=== PATIENT | male | born 1945 | race Caucasian/White ===

== ENCOUNTER 2018-10-25 12:14 | Emergency (ER) | payer BC, MEDICARE ==
[2018-10-25 12:27] VITALS: BP 173/106
[2018-10-25] MEDS ORDERED: Acetaminophen 325 MG Tab PO ONE (12:52)
--- NOTE | 2018-10-25 13:15 | EDM.PDOC ---
ED HPI GENERAL MEDICAL PROBLEM - General Chief Complaint: Lower Extremity Injury/Pain Stated Complaint: L LEG INJURY/FALL Time Seen by Provider: 10/25/18 12:29 Source of Information: Reports: Patient, Family, RN Notes Reviewed - History of Present Illness INITIAL COMMENTS - FREE TEXT/NARRATIVE: 72-year-old male with severe left leg pain. He was sitting on a chair, leaning to do something and the chair tipped over on him last evening falling against a table. He did suffer abrasion injury to his right forearm, abrasion contusion injury to his face but also some type of injury to his left upper leg. There was moderate discomfort of his left upper leg right after the fall but he was able to walk to bed. When up for the bathroom during the night the pain of the left leg was more severe. After resting for 90 minutes or so with a heating pad on his leg pain became so severe he can barely walk. It is some pain at rest but markedly increased pain with motion of the leg or any attempt at weightbearing. Of note he is on eliquis with history of chronic atrial fib. He denies headache or severe facial discomfort. Eyes neck or back pain. No major arm discomfort. - Related Data Allergies Allergy/AdvReac Type Severity Reaction Status Date / Time Penicillins Allergy Rash Verified 10/25/18 12:27 Home Meds: Home Meds [place] Co Q10 100 mg PO DAILY 04/01/16 [History] Omeprazole Magnesium [Prilosec Otc] 20 mg PO DAILY 04/01/16 [History] Probiotic 5 Strain 1 tab PO DAILY 04/01/16 [History] Tamsulosin [Flomax] 0.4 mg PO DAILY 04/01/16 [History] amLODIPine [Norvasc] 5 mg PO DAILY 04/01/16 [History] hydroCHLOROthiazide [Hydrochlorothiazide] 12.5 mg PO DAILY 04/01/16 [History] Apixaban [Eliquis] 5 mg PO BID 10/25/18 [History] Cyanocobalamin (Vitamin B-12) [Vitamin B-12] 5,000 mcg SL DAILY 10/25/18 [ History] Doxycycline [Doxycycline Monohydrate] 100 mg PO BID 10/25/18 [History] Past Medical History HEENT History: Reports: Impaired Vision Cardiovascular History: Reports: Afib, Hypertension Respiratory History: Reports: Pneumonia, Recurrent, Other (See Below) Other Respiratory History: off antibiotic last saturday for pneumonnia; left lower lung scraping Gastrointestinal History: Reports: GERD Genitourinary History: Reports: None Other Genitourinary History: only has 1 kidney, born with 1 Musculoskeletal History: Reports: None Neurological History: Reports: None 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; 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 Psychiatric History: Reports: None Endocrine/Metabolic History: Reports: None Hematologic History: Reports: None Immunologic History: Reports: None Oncologic (Cancer) History: Reports: None Dermatologic History: Reports: None - Infectious Disease History Infectious Disease History: Reports: Influenza - Past Surgical History Head Surgeries/Procedures: Reports: None GI Surgical History: Reports: Appendectomy Male Surgical History: Reports: None Musculoskeletal Surgical History: Reports: None Social & Family History - Family History Cardiac: Reports: CAD Neurological: Reports: CVA - Tobacco Use Smoking Status *Q: Never Smoker - Caffeine Use Caffeine Use: Reports: Coffee Other Caffeine Use: 1 cup daily - Recreational Drug Use Recreational Drug Use: No - Living Situation & Occupation Living situation: Reports: , with Spouse Occupation: Employed Review of Systems - Review of Systems Review Of Systems: See Below Constitutional: Reports: No Symptoms Eyes: Reports: No Symptoms Ears: Reports: No Symptoms Nose: Reports: No Symptoms Mouth/Throat: Reports: No Symptoms Respiratory: Denies: Shortness of Breath Cardiovascular: Denies: Chest Pain GI/Abdominal: Denies: Abdominal Pain, Nausea, Vomiting Musculoskeletal: Reports: Other (Severe pain left lateral proximal thigh). Denies: Neck Pain, Back Pain Skin: Reports: Other (Abrasion injury right forearm) Neurological: Denies: Dizziness, Numbness, Tingling ED EXAM, GENERAL - Physical Exam Exam: See Below General Appearance: Alert, Mild Distress Eye Exam: Bilateral Eye: PERRL Ears: Normal External Exam Head: Other (He does have mild abrasion injury periorbital left face,). No: Facial Swelling ( no bony tenderness of the head or face) Neck: Supple, Non-Tender Respiratory/Chest: No Respiratory Distress, Lungs Clear, Normal Breath Sounds Cardiovascular: Tachycardia GI/Abdominal: Soft, Non-Tender Extremities: Other (Moderate tenderness of the left proximal lateral thigh, no visible bruising or swelling, severe pain with motion of the left leg, knee is nontender, lower leg foot and ankle all nontender) Neurological: Alert, Oriented, No Motor/Sensory Deficits Skin Exam: Warm, Dry, Normal Color Course - Vital Signs Last Recorded V/S: Last Vital Signs Temp 98.0 F 10/25/18 12:23 Pulse 117 H 10/25/18 12:23 Resp 18 10/25/18 12:23 BP 173/106 H 10/25/18 12:23 Pulse Ox 99 10/25/18 12:23 - Orders/Labs/Meds Orders: Active Orders 24 hr Category Date Time Status Femur Min 2V Lt [CR] Stat Exams 10/25/18 12:52 Taken Pelvis 1V or 2V [CR] Stat Exams 10/25/18 12:52 Taken Meds: Medications Discontinued Medications Generic Name Dose Route Start Last Admin Trade Name Archie PRN Reason Stop Dose Admin Acetaminophen 975 mg 10/25/18 12:52 10/25/18 13:22 Tylenol PO 10/25/18 12:53 975 mg NOW ONE Administration Hydrocodone Bitart/Acetaminophen 1 tab 10/25/18 13:56 10/25/18 14:03 [place] 325-5 Mg PO 10/25/18 13:57 1 tab ONETIME ONE Administration - Re-Assessments/Exams Free Text/Narrative Re-Assessment/Exam: 10/25/18 19:35 X-rays of the femur and pelvis did not show any fracture as expected. He has contusion injury to the thigh with possible intramuscular hemorrhage. Have treated with Clint wrap and he will need a walker for at least 1-2 weeks until this has time to heal. I'm concerned he will be too unsteady with crutches. Did give Tylenol for pain and then one half tablet hydrocodone prior to discharge which did help him quite a lot. Discharge instructions as documented Departure - Departure Time of Disposition: 14:05 Disposition: Home, Self-Care 01 Condition: Fair Clinical Impression: Difficulty walking Thigh contusion Qualifiers: Encounter type: initial encounter Laterality: left Qualified Code(s): S70.12XA - Contusion of left thigh, initial encounter Fall Qualifiers: Encounter type: initial encounter Qualified Code(s): W19.XXXA - Unspecified fall, initial encounter - Discharge Information Instructions: Contusion, [id number] Referrals: Federico Cavanaugh MD [Primary Care Provider] - Forms: ED Department Discharge, ED Return to Work/School Form Additional Instructions: Clint wrap, rest leg, ice packs and elevation as needed for swelling, Clint wrap left thigh until pain resolving, use walker as needed until pain resolving, Tylenol up to 3 times daily for mild to moderate discomfort or one half tablet hydrocodone with 500 mg Tylenol every 6-8 hours if needed for more severe pain. Off work until pain resolving, follow up with your regular medical provider in about 5-6 days for recheck, call clinic Saturday for appointment, return to ED as needed if symptoms worsening in any way - My Orders Last 24 Hours: My Active Orders 10/25/18 12:52 Femur Min 2V Lt [CR] Stat Pelvis 1V or 2V [CR] Stat - Assessment/Plan Last 24 Hours: My Active Orders 10/25/18 12:52 Femur Min 2V Lt [CR] Stat Pelvis 1V or 2V [CR] Stat
[2018-10-25] MEDS ORDERED: Acetaminophen/HYDROcodone 325-5 MG Tab PO ONE (13:56)
--- NOTE | 2018-10-26 19:35 | CR ---
Left femur: AP and lateral views of the left femur were obtained. Comparison: No prior femur study. Medial joint space narrowing is noted within the knee which is moderate in severity. Slightly prominent overgrowth of the superior acetabulum of the left hip is seen which is degenerative in etiology. Osteopenia is noted. Minimal vascular calcification is present. No acute fracture or other acute bony abnormality is appreciated. Impression: 1. Degenerative change as noted above. 2. No acute abnormality is appreciated on two-view left femur study. Diagnostic code #2
--- NOTE | 2018-10-26 19:35 | CR ---
Pelvis: AP view of the pelvis was obtained. Comparison: No prior pelvis exam. Joint spaces within both hips are maintained. Sacroiliac joints are within normal limits. Mild bony overgrowth is noted of both superior acetabulum which is degenerative in etiology. No acute fracture or other bony abnormality is seen. Impression: 1. Incidental finding as noted above. 2. Nothing acute is appreciated on AP pelvis exam. Diagnostic code #2
== END 2018-10-25 14:40 | disposition home or self-care (01) ==
LOC: JD.ED 12:14
DX: S70.12XA Contusion of left thigh, initial encounter (principal); I48.91 Unspecified atrial fibrillation; I10 Essential (primary) hypertension; K21.9 Gastro-esophageal reflux disease without esophagitis; Z79.01 Long term (current) use of anticoagulants; Z88.0 Allergy status to penicillin; Z79.899 Other long term (current) drug therapy; W07.XXXA Fall from chair, initial encounter
CPT/HCPCS: 72170; 73552; 99283; A9270

== ENCOUNTER 2019-10-16 10:55 | Emergency (ER) | payer MEDICARE, BC ==
--- NOTE | 2019-10-16 12:01 | EDM.PDOC ---
ED HPI GENERAL MEDICAL PROBLEM - General Chief Complaint: Neuro Symptoms/Deficits Stated Complaint: [facility] Time Seen by Provider: 10/16/19 10:55 - History of Present Illness INITIAL COMMENTS - FREE TEXT/NARRATIVE: 73-year-old male presents the emergency room brought in by EMS with a stroke alert. At approximately 1015 this morning the patient had an onset with significant flaccidity on the right side and speech difficulties. EMS was contacted and the patient was transferred here. The patient in route cleared regained his ability to speak regain his ability to use his right side. And he thinks he is back to normal. The patient arrived here at 1055 transfer time was 6-8 minutes. 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 The patient's adds that the patient often drinks quite heavily but has been trying to cut back and has not had a drink in a week. The patient has chronic atrial fibrillation and has been off his Eliquis now for 7 days he was stopped 3 days before a gastrointestinal procedure done in [place] where he had an EGD and an ERCP with a stent placement. According to the patient he is due to restart his Eliquis today or tomorrow. - Related Data Allergies Allergy/AdvReac Type Severity Reaction Status Date / Time Penicillins Allergy Rash Verified 10/16/19 11:34 Home Meds: Home Meds Albert Co Q10 100 mg PO DAILY 04/01/16 [History] Omeprazole Magnesium [Prilosec Otc] 20 mg PO DAILY 04/01/16 [History] Probiotic 5 Strain 1 tab PO DAILY 04/01/16 [History] Tamsulosin [Flomax] 0.4 mg PO DAILY 04/01/16 [History] amLODIPine [Norvasc] 5 mg PO DAILY 04/01/16 [History] hydroCHLOROthiazide [Hydrochlorothiazide] 12.5 mg PO DAILY 04/01/16 [History] Apixaban [Eliquis] 5 mg PO BID 10/25/18 [History] Cyanocobalamin (Vitamin B-12) [Vitamin B-12] 5,000 mcg SL DAILY 10/25/18 [ History] Past Medical History HEENT History: Reports: Impaired Vision Cardiovascular History: Reports: Afib, Hypertension Respiratory History: Reports: Pneumonia, Recurrent, Other (See Below) Other Respiratory History: off antibiotic last saturday for pneumonnia; left lower lung scraping Gastrointestinal History: Reports: GERD Genitourinary History: Reports: None Other Genitourinary History: only has 1 kidney, born with 1 Musculoskeletal History: Reports: None Neurological History: Reports: None 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; 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 Psychiatric History: Reports: None Endocrine/Metabolic History: Reports: None Hematologic History: Reports: None Immunologic History: Reports: None Oncologic (Cancer) History: Reports: None Dermatologic History: Reports: None - Infectious Disease History Infectious Disease History: Reports: Influenza - Past Surgical History Head Surgeries/Procedures: Reports: None GI Surgical History: Reports: Appendectomy Male Surgical History: Reports: None Musculoskeletal Surgical History: Reports: None Social & Family History - Family History Cardiac: Reports: CAD Neurological: Reports: CVA - Caffeine Use Caffeine Use: Reports: Coffee Other Caffeine Use: 1 cup daily - Living Situation & Occupation Living situation: Reports: , with Spouse Occupation: Employed ED ROS GENERAL - Review of Systems Review Of Systems: See Below Constitutional: Reports: No Symptoms HEENT: Reports: No Symptoms Respiratory: Reports: No Symptoms Cardiovascular: Reports: No Symptoms Endocrine: Reports: No Symptoms GI/Abdominal: Reports: No Symptoms : Reports: No Symptoms Musculoskeletal: Reports: Other (See history of present illness) Neurological: Reports: Other (See history of present illness) ED EXAM, NEURO - Physical Exam Exam: See Below Exam Limited By: No Limitations General Appearance: Alert, No Apparent Distress, Other (The patient states he is back to normal) Eye Exam: Bilateral Eye: EOMI, Normal Inspection, PERRL Ears: Normal External Exam, Normal Canal, Hearing Grossly Normal, Normal TMs Nose: Normal Inspection, Normal Mucosa, No Blood Throat/Mouth: Normal Inspection, Normal Lips, Normal Teeth, Normal Gums, Normal Oropharynx, Normal Voice, No Airway Compromise Head Exam: Atraumatic, Normocephalic Neck: Normal Inspection, Supple, Non-Tender, Full Range of Motion. 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 The patient can lift up both legs equally and hold them up against resistance equally dorsiflexion of the foot and extension is equal bilaterally. Stroke score of 1 he had difficulty identifying the ye the cactus in the hammock. He could read without difficulty and identify what was going on in the other scenarios without any problems.) Course - Vital Signs Last Recorded V/S: Last Vital Signs Temp 37.1 C 10/16/19 11:07 Pulse 84 10/16/19 11:07 Resp 13 10/16/19 11:07 BP 164/87 H 10/16/19 11:07 Pulse Ox 100 10/16/19 11:07 - Orders/Labs/Meds Orders: Active Orders 24 hr Category Date Time Status EKG 12 Lead [EKG Documentation Completion] [RC] ROUTINE Care 10/16/19 12:45 Active Head wo Cont [CT] Routine Exams 10/16/19 11:05 Taken Sodium Chloride 0.9% [Saline Flush] Med 10/16/19 12:15 Active 10 ml FLUSH ASDIRECTED Sodium Chloride 0.9% [Saline Flush] Med 10/16/19 13:30 Active 40 ml FLUSH ASDIRECTED Medication Orders Sodium Chloride (Saline Flush) 10 ml FLUSH ASDIRECTED MALDONADO Last Admin: 10/16/19 13:20 Dose: 10 ml Sodium Chloride (Saline Flush) 40 ml FLUSH ASDIRECTED MALDONADO Last Admin: 10/16/19 13:21 Dose: 40 ml Labs: Laboratory Tests 10/16/19 10/16/19 10/16/19 Range/Units 11:30 11:30 11:30 WBC 6.44 (4.23-9.07) K/mm3 RBC 4.85 (4.63-6.08) M/mm3 Hgb 15.4 (13.7-17.5) gm/dl Hct 46.3 (40.1-51.0) % MCV 95.5 H D (79.0-92.2) fl MCH 31.8 (25.7-32.2) pg MCHC 33.3 (32.2-35.5) g/dl RDW Std Deviation 45.0 H (35.1-43.9) fL Plt Count 283 (163-337) K/mm3 MPV 10.7 (9.4-12.3) fl Neut % (Auto) 69.2 H (34.0-67.9) % Lymph % (Auto) 16.1 L (21.8-53.1) % [place] % (Auto) 9.3 (5.3-12.2) % Eos % (Auto) 4.2 (0.8-7.0) Baso % (Auto) 0.9 (0.1-1.2) % Neut # (Auto) 4.45 (1.78-5.38) K/mm3 Lymph # (Auto) 1.04 L (1.32-3.57) K/mm3 [place] # (Auto) 0.60 (0.30-0.82) K/mm3 Eos # (Auto) 0.27 (0.04-0.54) K/mm3 Baso # (Auto) 0.06 (0.01-0.08) K/mm3 PT 11.3 (9.7-12.0) SECONDS INR 1.04 APTT 29 (22-31) SECONDS Sodium 143 (136-145) mEq/L Potassium 3.7 (3.5-5.1) mEq/L Chloride 105 (98-107) mEq/L Carbon Dioxide 28 (21-32) mEq/L Anion Gap 13.7 (5-15) BUN 15 (7-18) mg/dL Creatinine 1.2 (0.7-1.3) mg/dL Est Cr Clr Drug Dosing 61.07 mL/min Estimated GFR (MDRD) 60 (>60) mL/min BUN/Creatinine Ratio 12.5 L (14-18) Glucose 136 H (83-115) mg/dL POC Glucose (83-110) mg/dL Calcium 9.1 (8.5-10.1) mg/dL Total Bilirubin 0.8 (0.2-1.0) mg/dL AST 18 (15-37) U/L ALT 30 (16-63) U/L Alkaline Phosphatase 103 (46-116) U/L Troponin I < 0.017 (0.00-0.056) ng/mL Total Protein 7.4 (6.4-8.2) g/dl Albumin 3.4 (3.4-5.0) g/dl Globulin 4.0 gm/dL Albumin/Globulin Ratio 0.9 L (1-2) 05/29/20 Range/Units 11:32 WBC (4.23-9.07) K/mm3 RBC (4.63-6.08) M/mm3 Hgb (13.7-17.5) gm/dl Hct (40.1-51.0) % MCV (79.0-92.2) fl MCH (25.7-32.2) pg MCHC (32.2-35.5) g/dl RDW Std Deviation (35.1-43.9) fL Plt Count (163-337) K/mm3 MPV (9.4-12.3) fl Neut % (Auto) (34.0-67.9) % Lymph % (Auto) (21.8-53.1) % [place] % (Auto) (5.3-12.2) % Eos % (Auto) (0.8-7.0) Baso % (Auto) (0.1-1.2) % Neut # (Auto) (1.78-5.38) K/mm3 Lymph # (Auto) (1.32-3.57) K/mm3 [place] # (Auto) (0.30-0.82) K/mm3 Eos # (Auto) (0.04-0.54) K/mm3 Baso # (Auto) (0.01-0.08) K/mm3 PT (9.7-12.0) SECONDS INR APTT (22-31) SECONDS Sodium (136-145) mEq/L Potassium (3.5-5.1) mEq/L Chloride (98-107) mEq/L Carbon Dioxide (21-32) mEq/L Anion Gap (5-15) BUN (7-18) mg/dL Creatinine (0.7-1.3) mg/dL Est Cr Clr Drug Dosing mL/min Estimated GFR (MDRD) (>60) mL/min BUN/Creatinine Ratio (14-18) Glucose (83-115) mg/dL POC Glucose 140 H (83-110) mg/dL Calcium (8.5-10.1) mg/dL Total Bilirubin (0.2-1.0) mg/dL AST (15-37) U/L ALT (16-63) U/L Alkaline Phosphatase (46-116) U/L Troponin I (0.00-0.056) ng/mL Total Protein (6.4-8.2) g/dl Albumin (3.4-5.0) g/dl Globulin gm/dL Albumin/Globulin Ratio (1-2) Meds: Medications Generic Name Dose Route Start Last Admin Trade Name Freq PRN Reason Stop Dose Admin Sodium Chloride 10 ml 10/16/19 12:15 10/16/19 13:20 Saline Flush FLUSH 10 ml ASDIRECTED MALDONADO Administration Sodium Chloride 40 ml 10/16/19 13:30 10/16/19 13:21 Saline Flush FLUSH 40 ml ASDIRECTED MALDONADO Administration Discontinued Medications Generic Name Dose Route Start Last Admin Trade Name Freq PRN Reason Stop Dose Admin Aspirin 325 mg 10/16/19 13:54 10/16/19 14:08 Ecotrin PO 10/16/19 13:55 325 mg ONETIME ONE Administration Gadobenate Dimeglumine 20 ml 10/16/19 12:08 10/16/19 13:19 Multihance IVPUSH 10/16/19 12:09 20 ml ONETIME ONE Administration - Re-Assessments/Exams Free Text/Narrative Re-Assessment/Exam: 10/16/19 12:28 This case was discussed with Dr. Terrazas at [place] [facility] call at [address] got connected with Dr. Terrazas at 1154. Dr. Terrazas agreed with MRI/MRA. He does recommend awaiting the results of these before making a decision with restarting the Eliquis. I will discuss this again with Dr. Terrazas after I get the results of the MRI/ MRA 10/16/19 14:50 I did discuss the images with Dr. Terrazas. He did not feel that interventional radiology had anything to offer after reviewing the images his recommendation was start aspirin 325 daily and restarting the Eliquis in about a week. Mk did feel that watching him for a little while would be very appropriate. I did discuss this with Dr. Deal our hospitalist. She wished for me to discuss this with interventional radiology I did discuss it with Dr. Benson interventional radiologist environmental conservation officer who agreed that he does not have anything to offer the patient. I did relay this information to Dr. Deal who will come by and see the patient 10/16/19 15:22 Dr. Deal did come and examined the patient and felt strongly that she did not have anything to offer the patient and recommended going home on a daily aspirin 325 mg a day and following up with regular provider on Saturday or Saturday and then the discussion needs to happen about restarting the Eliquis it was Dr. Terrazas's recommendation to start it in 1 week. Approximately 1 hour ago I did discuss the patient's case with Bethany the patient's daughter and then again discussed the situation with her regarding the outpatient treatment. Departure - Departure Time of Disposition: 14:52 Disposition: Home, Self-Care 01 Clinical Impression: CVA (cerebral vascular accident), Transient ischemic attack (TIA), Expressive aphasia - Discharge Information Referrals: Federico Cavanaugh MD [Primary Care Provider] - Forms: ED Department Discharge Additional Instructions: Return to the emergency room with any questions problems or worsening symptoms. Take aspirin 325 mg daily until restarting the Eliquis. Follow-up with your regular physician on Saturday or Saturday for follow-up. Also discuss restarting the Eliquis. It was the neurologist recommendation to wait 1 week after today before restarting the Eliquis. Sepsis Event Note - Evaluation Sepsis Screening Result: No Definite Risk - Focused Exam Vital Signs: Vital Signs Temp Pulse Resp BP Pulse Ox 10/16/19 11:07 37.1 C 84 13 164/87 H 100 Date Exam was Performed: 10/16/19 Time Exam was Performed: 15:22 - My Orders Last 24 Hours: My Active Orders 10/16/19 11:05 Head wo Cont [CT] Routine 10/16/19 12:15 Sodium Chloride 0.9% [Saline Flush] 10 ml FLUSH ASDIRECTED 10/16/19 12:45 EKG 12 Lead [EKG Documentation Completion] [RC] ROUTINE 10/16/19 13:30 Sodium Chloride 0.9% [Saline Flush] 40 ml FLUSH ASDIRECTED - Assessment/Plan Last 24 Hours: My Active Orders 10/16/19 11:05 Head wo Cont [CT] Routine 10/16/19 12:15 Sodium Chloride 0.9% [Saline Flush] 10 ml FLUSH ASDIRECTED 10/16/19 12:45 EKG 12 Lead [EKG Documentation Completion] [RC] ROUTINE 10/16/19 13:30 Sodium Chloride 0.9% [Saline Flush] 40 ml FLUSH ASDIRECTED
[2019-10-16] MEDS ORDERED: Gadobenate Dimeglumine 529 MG/ML 20 ML SDV IVPUSH ONE (12:08)
[2019-10-16] MEDS ORDERED: Sodium Chloride 0.9% 10 ML Syringe FLUSH SCH ×2 (12:15→13:30)
--- NOTE | 2019-10-16 12:38 | MR ---
MRI angiogram of brain Technique: MR angiogram sequence was obtained centered of the [place]. Multiple MIP images were obtained in multiple projections. Findings: 2 patent distal vertebral arteries are seen. Basilar artery is patent. Both posterior cerebral arteries are patent. Distal internal carotid arteries are patent. Carotid siphon is patent. Right middle cerebral artery appears patent. Anterior cerebral arteries are patent. Diminished flow is noted into the left middle cerebral artery which may relate to the area of encephalomalacia within the left frontal lobe. Opercular branches are not seen of the middle cerebral artery. Impression: 1. Poor flow into the left middle cerebral artery with nonvisualized opercular branches of the middle cerebral artery and left side. This finding may relate to encephalomalacia within the left frontal region. MRI diffusion sequence could be obtained to make sure no abnormal areas of diffusion are present in this area. 2. Other portions of the MR angiogram study are unremarkable. Diagnostic code #3 This report was dictated in MDT
--- NOTE | 2019-10-16 13:12 | MR ---
MR angiogram of neck Technique: Postcontrast MR angiogram study was obtained of the neck vessels. Both common carotid arteries are widely patent. Carotid bulbs appear patent on both sides. Internal and proximal external carotid arteries are patent. Vertebral arteries are felt to be widely patent on the source images. There is patency into the basilar artery. Impression: 1. No abnormality is seen on MR angiogram of the neck. Diagnostic code #1 This report was dictated in MDT
--- NOTE | 2019-10-16 13:12 | MR ---
MRI brain (without and with intravenous contrast) Technique: T1 sagittal T2, T2 FLAIR, T1 and diffusion axial; T1 FLAIR coronal; postcontrast T1 axial and post contrast T1 FLAIR coronal images were also obtained. Comparison: Previous head CT study as well as MR angiogram performed on the same day. Findings: Very small diffusion abnormality is seen within the white matter within the left parietal region. No other definite diffusion abnormalities are seen. Mild increased signal seen within the deepa as well as scattered within the periventricular and subcortical white matter. Increased signal is noted within the left medial frontal lobe. Cystic areas of encephalomalacia is noted within the left frontal region. Ex vacuole enlargement of the lateral left ventricle is noted. No other abnormal signal is seen within the brain parenchyma other than several old left-sided basal ganglia lacunar infarcts. There are no areas of abnormal enhancement being seen. No midline shift is seen. Impression: 1. Minimal acute diffusion abnormality within the left parietal white matter compatible with small acute white matter infarct. 2. Numerous areas of increased signal within the deepa, periventricular and subcortical white matter which is I feel is compatible with small vessel ischemic demyelination change. 3. Encephalomalacia is again noted within the left frontal region. 4. No areas of abnormal enhancement are seen. Diagnostic code #3 This report was dictated in MDT
[2019-10-16] MEDS ORDERED: Aspirin 325 MG Tab.EC PO ONE (13:54)
[2019-10-16 15:54] VITALS: BP 130/78; PULSE 70
--- NOTE | 2019-10-16 20:34 | CT ---
Head CT Technique: Multiple axial sections through the brain were obtained. Intravenous contrast was not utilized. Comparison: Previous head CT study of 09/02/09. 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 Moderate areas of diminished density are noted within the periventricular white matter which is compatible with small vessel ischemic demyelination change. Several old lacunar infarcts are noted within the basal ganglia. No other abnormal parenchymal densities are seen. No evidence of intracranial hemorrhage. No midline shift or mass-effect is seen. Ex vacuole enlargement is noted within the frontal horn of the lateral ventricle. Ventricles along with basal cisterns and sulci over the convexities are mildly prominent. Bone window settings were reviewed. Previous left-sided craniotomy is again noted. Visualized mastoid sinuses show nothing acute. Visualized paranasal sinuses show nothing acute. Impression: 1. Encephalomalacia within the left frontal lobe in area of previous craniotomy. 2. Senescent change as described above. 3. Nothing acute is definitely appreciated on noncontrast head CT exam. Diagnostic code #3 This report was dictated in MDT MTDD
== END 2019-10-16 15:58 | disposition home or self-care (01) ==
LOC: JD.ED 10:55
DX: I63.9 Cerebral infarction, unspecified (principal); G45.9 Transient cerebral ischemic attack, unspecified; K21.9 Gastro-esophageal reflux disease without esophagitis; I10 Essential (primary) hypertension; I48.91 Unspecified atrial fibrillation; Z88.0 Allergy status to penicillin; Z79.899 Other long term (current) drug therapy
CPT/HCPCS: 36415; 70450; 70544; 70548; 70553; 80053; 82962; 84484; 85025; 85610; 85730; 93005; 99285; A9270; A9577

== ENCOUNTER 2019-10-17 11:13 | Emergency (ER) | payer MEDICARE, BC ==
[2019-10-17] MEDS ORDERED: Diltiazem 50 MG/10 ML SDV IVPUSH ONE ×3 (12:02→13:36)
--- NOTE | 2019-10-17 12:08 | EDM.PDOC ---
ED HPI GENERAL MEDICAL PROBLEM - General Chief Complaint: Neuro Symptoms/Deficits Stated Complaint: FOLLOW UP ON YESTERDAY Time Seen by Provider: 10/17/19 12:00 Source of Information: Reports: Patient, Family (daughter) History Limitations: Reports: No Limitations - History of Present Illness INITIAL COMMENTS - FREE TEXT/NARRATIVE: 73-year-old male presents to the ED for evaluation of waxing and waning neurological symptoms. Patient developed acute onset of expressive aphasia and right arm weakness yesterday morning approximately 1030. He was seen through the ED and had a CT of his brain. It reveals an old craniotomy in the left temporoparietal cortex from removal of a benign brain tumor about 14 years ago. He subsequently had an MRI of his neck and MR I angiogram of the brain as well. No abnormalities of depicted on the MRI angiogram of the neck. The MRI angiogram of the brain revealed poor flow in the left middle cerebral artery with nonvisualized opercular branches of the middle cerebral artery on the left side. This finding may relate to encephalomalacia within the left frontal parietal region. 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 He was sent to [place] last week Saturday where he had a stent placed in the common bile duct by history. He had multiple biopsies of the head of the pancreas and results are not yet yet known whether there was any malignancy. He noticed stones or sludge were identified within the common bile duct. Patient has a history of chronic atrial fibrillation with rate usually well controlled without rate control medications. He was on Eliquis 5 mg twice daily which was discontinued 2 days before the stent placement. He has not yet resumed use of this medication. After he presented yesterday neurological consultation with Dr. Ayon in [place] was carried out and it was felt that there was little they had to offer and terms of neurological management and that they recommended he does take a 325 mg aspirin daily for another week before starting back on the Eliquis. However the daughter reports that his symptoms are waxing and waning in terms that his speech can be better and understandable at times and otherwise incomprehensible the patient exhibits a significant expressive aphasia. Also reports that he developed right arm weakness this morning and was carrying a cup of coffee into the living room and it simply fell out of his hand or tipped over secondary to weakness in the arm and hand. She reports now his symptoms are somewhat better than they were at home 2 hours ago. Patient denies any headache nausea or vomiting. He denies any visual acuity changes. He denies any problems with his gait although his daughter indicates that he was walking a little bit ataxic and listing towards the right side. At the time of presentation he is atrial fibrillation was up as high as 128/min but stays primarily in the 1 teens. 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 Of note he has no problems swallowing or eating. Onset: Sudden Onset Date: 10/16/19 Onset Time: 10:30 Duration: Hour(s):, Waxing/Waning (Symptoms of never gone away completely since onset yesterday morning. Nearly his expressive aphasia waxes and wanes and increased weakness coming and going in his right upper extremity.) Location: Reports: Upper Extremity, Right, Other (Breasts of a aphasia) Quality: Reports: Other (Is in no pain) Severity: Moderate Improves with: Reports: None Worsens with: Reports: Other Context: Reports: Other (History of chronic atrial fibrillation.). Denies: Activity (Times are waxing and waning.), Exercise, Lifting, Sick Contact, Trauma Associated Symptoms: Reports: Weakness, Other (Right upper extremity breaths of a aphasia). Denies: Confusion, Chest Pain, Cough, cough w sputum, Diaphoresis, Fever/Chills, Headaches, Loss of Appetite, Malaise, Nausea/Vomiting, Rash, Seizure, Shortness of Breath, Syncope Treatments SSIS SSRS DEVELOPER: Reports: Other (see below) (Aspirin 325 mg once daily.) - Related Data Allergies Allergy/AdvReac Type Severity Reaction Status Date / Time Penicillins Allergy Rash Verified 10/17/19 11:34 Home Meds: Home Meds Albert Co Q10 100 mg PO DAILY 04/01/16 [History] Omeprazole Magnesium [Prilosec Otc] 20 mg PO DAILY 04/01/16 [History] Probiotic 5 Strain 1 tab PO DAILY 04/01/16 [History] Tamsulosin [Flomax] 0.4 mg PO DAILY 04/01/16 [History] amLODIPine [Norvasc] 5 mg PO DAILY 04/01/16 [History] hydroCHLOROthiazide [Hydrochlorothiazide] 12.5 mg PO DAILY 04/01/16 [History] Apixaban [Eliquis] 5 mg PO BID 10/25/18 [History] Cyanocobalamin (Vitamin B-12) [Vitamin B-12] 5,000 mcg SL DAILY 10/25/18 [ History] Aspirin 325 mg PO DAILY 10/17/19 [History] Past Medical History HEENT History: Reports: Impaired Vision Cardiovascular History: Reports: Afib, Hypertension Respiratory History: Reports: Pneumonia, Recurrent Other Respiratory History: off antibiotic last saturday for pneumonnia; left lower lung scraping Gastrointestinal History: Reports: GERD Genitourinary History: Reports: None Other Genitourinary History: only has 1 kidney, born with 1 Musculoskeletal History: Reports: None Neurological History: Reports: None, CVA, TIA 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; no cancer Psychiatric History: Reports: None Endocrine/Metabolic History: Reports: None Hematologic History: Reports: None Immunologic History: Reports: None Oncologic (Cancer) History: Reports: None Dermatologic History: Reports: None - Infectious Disease History Infectious Disease History: Reports: Influenza - Past Surgical History Head Surgeries/Procedures: Reports: None GI Surgical History: Reports: Appendectomy Male Surgical History: Reports: None Musculoskeletal Surgical History: Reports: None Social & Family History - Family History Cardiac: Reports: CAD Neurological: Reports: CVA - Tobacco Use Smoking Status *Q: Former Smoker Used Tobacco, but Quit: Yes Month/Year Tobacco Last Used: 50 years ago - Caffeine Use Caffeine Use: Reports: None Other Caffeine Use: 1 cup daily - Recreational Drug Use Recreational Drug Use: No - Living Situation & Occupation Living situation: Reports: , with Spouse Occupation: Employed [employer] [facility] - Review of Systems Review Of Systems: See Below Constitutional: Reports: Malaise, Fatigue. Denies: Fever, Chills, Decreased Appetite, Weight Loss HEENT: Reports: No Symptoms Respiratory: Reports: Shortness of Breath. Denies: Wheezing, Pleuritic Chest Pain (On exertion at times), Cough, Sputum, Hemoptysis, Other Cardiovascular: Reports: Blood Pressure Problem, Dyspnea on Exertion, Palpitations (Rarely aware of any palpitations). Denies: Claudication, Edema, Lightheadedness, Orthopnea Endocrine: Reports: Fatigue GI/Abdominal: Reports: Abdominal Pain (Was having terrible abdominal pain until the stent was placed last Saturday in the common bile duct. Fact he was experiencing pancreatitis.), Decreased Appetite, Nausea. Denies: Constipation, Diarrhea, Difficulty Swallowing, Distension, Flatus, Hematemesis, Hematochezia, Melena, Mucous in Stool : Reports: Frequency, Other (. Usually between 2 and 4 times nightly.) Musculoskeletal: Reports: Back Pain, Other Skin: Reports: Bruising (A week. Bruises easily when he is on Eliquis. He has been off for or) Neurological: Reports: Trouble Speaking (Rest of a aphasia again symptoms seem to wax and wane but have never improved since yesterday's onset of stroke symptoms), Weakness (Upper extremity), Change in Speech. Denies: Confusion, Dizziness, Headache, Numbness, Seizure, Syncope, Tingling, Difficulty Walking, Gait Disturbance, Other Psychiatric: Reports: No Symptoms Hematologic/Lymphatic: Reports: No Symptoms Immunologic: Reports: No Symptoms ED EXAM, NEURO - Physical Exam Exam: See Below Exam Limited By: Other General Appearance: Alert (Suppressive aphasia makes it somewhat difficult to understand him at times.), WD/WN, Anxious, Mild Distress, Other (Temperature is 36.2 with a heart rate up to 128/min atrial fibrillation on the monitor respiratory of 17 sats 100% room air BP 156/88.) Eye Exam: Bilateral Eye: Normal Inspection, PERRL (No gaze palsy.) Throat/Mouth: Normal Inspection, Normal Lips, Normal Oropharynx, Other (Uvula does pull to the wards the right side.) Head Exam: Atraumatic, Normocephalic, Other (No outward signs of any head or facial trauma.) Neck: Normal Inspection, Supple, Non-Tender, Full Range of Motion. No: Carotid Bruit, Lymphadenopathy (L), Lymphadenopathy (R), Thyromegaly Respiratory/Chest: No Respiratory Distress, No Accessory Muscle Use, Rales ( Crackles both lung bases slightly worse on the left side as compared to the right.) Cardiovascular: Normal Peripheral Pulses, No Edema (Heart rate is irregular regular due to atrial fibrillation.), No Gallop, No Murmur, No Rub, Irregularly Irregular GI/Abdominal: Normal Bowel Sounds, Soft, Non-Tender, No Organomegaly, No Distention, No Mass, Pelvis Stable Neurological: Alert, Normal Mood/Affect, Normal Dorsiflexion, CN II-XII Intact, Oriented x 3, Babinski (Negative), Other (Very mild right-sided facial weakness. No appreciable weakness in the right arm or right leg. Gait is completely normal and he is able to pivot and turn without any ataxia. Romberg negative. There was no pronator drift. Rapid alternating movements were normal.). No: Abnormal Gait, Ataxia, Abnormal Finger to Nose, Abnormal Sensation, Straight Leg Raise (L), Straight Leg Raise (R), Difficulty Walking DTR: 0: Achilles (R), Achilles (L), 1+: Patella (L), 2+: Bicep (R), Bicep (L), Patella (R) Back Exam: Normal Inspection, Full Range of Motion. No: CVA Tenderness (L), CVA Tenderness (R) Extremities: Normal Inspection, Normal Range of Motion, Non-Tender, No Pedal Edema Psychiatric: Normal Affect, Anxious Skin Exam: Warm, Dry, Intact, Normal Color, No Rash EKG INTERPRETATION EKG Date: 10/17/19 Time: 12:07 Rhythm: A-Fib (Rate of 85 to 150/min) Rate (Beats/Min): 114 [place]: Normal P-Wave: Absent QRS: Other (There is Q waves in lead V1 V2 compared with a normal old anteroseptal myocardial infarction. There is early R wave transition V3 V4 consider septal hypertrophy pattern.) ST-T: Other (Paced voltage in the limb leads.) QT: Prolonged (QTC is mildly prolonged.) EKG Interpretation Comments: Abnormal ECG Course - Vital Signs Last Recorded V/S: Last Vital Signs Temp 36.2 C 10/17/19 11:29 Pulse 107 H 10/17/19 11:29 Resp 17 10/17/19 11:29 BP 156/88 H 10/17/19 11:29 Pulse Ox 100 10/17/19 11:29 - Orders/Labs/Meds Orders: Active Orders 24 hr Category Date Time Status EKG Documentation Completion [RC] STAT Care 10/17/19 12:02 Active Chest 1V Frontal [CR] Stat Exams 10/17/19 12:01 Taken Head wo Cont [CT] Stat Exams 10/17/19 12:03 Taken Diltiazem [Cardizem] 100 mg Med 10/17/19 12:15 Active Sodium Chloride 0.9% [Normal Saline] 100 ml IV TITRATE Sodium Chloride 0.9% [Normal Saline] 1,000 ml Med 10/17/19 12:15 Active IV ASDIRECTED Medication Orders Diltiazem HCl 100 mg/ Sodium (Chloride) 100 mls @ 5 mls/hr IV TITRATE MALDONADO; Protocol Last Titration: 10/17/19 13:05 Dose: 15 mg/hr, 15 mls/hr Titration: 10/17/19 12:51 Dose: 10 mg/hr, 10 mls/hr Admin: 10/17/19 12:27 Dose: 5 mg/hr, 5 mls/hr Sodium Chloride (Normal Saline) 1,000 mls @ 100 mls/hr IV ASDIRECTED MALDONADO Last Admin: 10/17/19 12:27 Dose: 100 mls/hr Labs: Laboratory Tests 10/17/19 10/17/19 10/17/19 Range/Units 11:30 11:30 11:30 WBC 8.56 (4.23-9.07) K/mm3 RBC 5.02 (4.63-6.08) M/mm3 Hgb 16.0 (13.7-17.5) gm/dl Hct 47.4 (40.1-51.0) % MCV 94.4 H (79.0-92.2) fl MCH 31.9 (25.7-32.2) pg MCHC 33.8 (32.2-35.5) g/dl RDW Std Deviation 45.0 H (35.1-43.9) fL Plt Count 320 (163-337) K/mm3 MPV 11.0 (9.4-12.3) fl Neut % (Auto) 73.9 H (34.0-67.9) % Lymph % (Auto) 14.0 L (21.8-53.1) % [place] % (Auto) 9.0 (5.3-12.2) % Eos % (Auto) 1.8 (0.8-7.0) Baso % (Auto) 1.1 (0.1-1.2) % Neut # (Auto) 6.33 H (1.78-5.38) K/mm3 Lymph # (Auto) 1.20 L (1.32-3.57) K/mm3 [place] # (Auto) 0.77 (0.30-0.82) K/mm3 Eos # (Auto) 0.15 (0.04-0.54) K/mm3 Baso # (Auto) 0.09 H (0.01-0.08) K/mm3 ESR (0-15) mm/hr PT 11.1 (9.7-12.0) SECONDS INR 1.02 APTT 30 (22-31) SECONDS D-Dimer, Quantitative 0.66 H (0.19-0.50) mg/L Sodium 143 (136-145) mEq/L Potassium 3.8 (3.5-5.1) mEq/L Chloride 106 (98-107) mEq/L Carbon Dioxide 25 (21-32) mEq/L Anion Gap 15.8 H (5-15) BUN 15 (7-18) mg/dL Creatinine 1.1 (0.7-1.3) mg/dL Est Cr Clr Drug Dosing 64.65 mL/min Estimated GFR (MDRD) > 60 (>60) mL/min BUN/Creatinine Ratio 13.6 L (14-18) Glucose 113 (83-115) mg/dL Calcium 9.4 (8.5-10.1) mg/dL Magnesium 1.9 (1.8-2.4) mg/dl Total Bilirubin 0.7 (0.2-1.0) mg/dL GGT 59 (15-85) U/L AST 20 (15-37) U/L ALT 28 (16-63) U/L Alkaline Phosphatase 106 (46-116) U/L Troponin I < 0.017 (0.00-0.056) ng/mL C-Reactive Protein 2.2 H* (<1.0) mg/dL NT-Pro-B Natriuret Pep (0-125) pg/mL Total Protein 7.8 (6.4-8.2) g/dl Albumin 3.5 (3.4-5.0) g/dl Globulin 4.3 gm/dL Albumin/Globulin Ratio 0.8 L (1-2) Lipase 157 (73-393) U/L 30/20 05/30/20 Range/Units 11:30 11:30 WBC (4.23-9.07) K/mm3 RBC (4.63-6.08) M/mm3 Hgb (13.7-17.5) gm/dl Hct (40.1-51.0) % MCV (79.0-92.2) fl MCH (25.7-32.2) pg MCHC (32.2-35.5) g/dl RDW Std Deviation (35.1-43.9) fL Plt Count (163-337) K/mm3 MPV (9.4-12.3) fl Neut % (Auto) (34.0-67.9) % Lymph % (Auto) (21.8-53.1) % [place] % (Auto) (5.3-12.2) % Eos % (Auto) (0.8-7.0) Baso % (Auto) (0.1-1.2) % Neut # (Auto) (1.78-5.38) K/mm3 Lymph # (Auto) (1.32-3.57) K/mm3 [place] # (Auto) (0.30-0.82) K/mm3 Eos # (Auto) (0.04-0.54) K/mm3 Baso # (Auto) (0.01-0.08) K/mm3 ESR 36 H (0-15) mm/hr PT (9.7-12.0) SECONDS INR APTT (22-31) SECONDS D-Dimer, Quantitative (0.19-0.50) mg/L Sodium (136-145) mEq/L Potassium (3.5-5.1) mEq/L Chloride (98-107) mEq/L Carbon Dioxide (21-32) mEq/L Anion Gap (5-15) BUN (7-18) mg/dL Creatinine (0.7-1.3) mg/dL Est Cr Clr Drug Dosing mL/min Estimated GFR (MDRD) (>60) mL/min BUN/Creatinine Ratio (14-18) Glucose (83-115) mg/dL Calcium (8.5-10.1) mg/dL Magnesium (1.8-2.4) mg/dl Total Bilirubin (0.2-1.0) mg/dL GGT (15-85) U/L AST (15-37) U/L ALT (16-63) U/L Alkaline Phosphatase (46-116) U/L Troponin I (0.00-0.056) ng/mL C-Reactive Protein (<1.0) mg/dL NT-Pro-B Natriuret Pep 954 H (0-125) pg/mL Total Protein (6.4-8.2) g/dl Albumin (3.4-5.0) g/dl Globulin gm/dL Albumin/Globulin Ratio (1-2) Lipase (73-393) U/L Meds: Medications Generic Name Dose Route Start Last Admin Trade Name Freq PRN Reason Stop Dose Admin Diltiazem HCl 100 mg/ Sodium 100 mls @ 5 mls/hr 10/17/19 12:15 10/17/19 13:05 Chloride IV 15 mg/hr TITRATE MALDONADO 15 mls/hr Titration Protocol 5 MG/HR Sodium Chloride 1,000 mls @ 100 mls/hr 10/17/19 12:15 10/17/19 12:27 Normal Saline IV 100 mls/hr ASDIRECTED MALDONADO Administration Discontinued Medications Generic Name Dose Route Start Last Admin Trade Name Freq PRN Reason Stop Dose Admin Diltiazem HCl 10 mg 10/17/19 12:02 10/17/19 12:27 Cardizem IVPUSH 10/17/19 12:03 10 mg ONETIME ONE Administration Diltiazem HCl 10 mg 10/17/19 13:19 10/17/19 13:21 Cardizem IVPUSH 10/17/19 13:20 10 mg ONETIME ONE Administration Diltiazem HCl 15 mg 10/17/19 13:36 10/17/19 14:01 Cardizem IVPUSH 10/17/19 13:37 15 mg ONETIME ONE Administration - Radiology Interpretation Free Text/Narrative:: 73-year-old male presents to the ED for review of strokelike symptoms that wax and wane over the last 30 hours or more. He had sudden onset of strokelike symptoms with development of expressive aphasia and could not speak at all initially yesterday morning at about 1030 hrs. while at home. He was making funny noises according to his and had a dazed look in his eyes. He could not speak initially. She also recognized that he had weakness in his right upper extremity and perhaps in his right lower extremity as he was walking abnormally like a shuffling gait. He was brought to the ED and worked up thoroughly with MRI MRA of the brain and neck. 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 For there is a large area of encephalomalacia on the MRI. No definitive stroke could be identified at that time. However there was suspect occlusion of some of the branches of the middle cerebral artery mentioned by the radiologist. Of note the patient is in chronic atrial fibrillation and is on Eliquis 5 mg twice daily up until a week ago when it was discontinued. It was discontinued for for placement of a stent in his common bile duct done in [facility] in [place] last Saturday, October 12. He presents today in atrial fibrillation with poor rate control a rapid ventricular response up to 150/min. His daughter reports that his neurological symptoms are waxing and waning at times he cannot be understood at all and other times his speech is somewhat discernible. He also exhibited right upper extremity weakness this morning when he lost control of a cup of coffee and it tipped over due to weakness in his hand. On monitor on my assessment his gait was completely normal and his motor power and strength were pretty well equal in both upper extremities. He does have an expressive aphasia and slight right-sided facial weakness. Suspect that he likely has developed thrombus in his heart and is throwing small emboli out of his heart causing intermittent stroke symptoms. Is also possible that his heart rate is high enough that it is aggravating stroke symptoms from yesterday. Kiran he will be started on Cardizem 10 mg IV bolus and then 5 mg/h for rate control. Apparently consultation with neurology services yesterday suggested not to start him back on Eliquis for about a week. He is to take aspirin 325 mg once daily which he took this morning and yesterday. Inferior here a few crackles in the bases of his lungs. He will therefore have chest x-ray routine labs including BNP and magnesium levels. Tentatively he will be sent to [facility] in [place] where he can have a echocardiogram on an emergent basis that could be interpreted. Then decision made about best treatment options for him to prevent recurrent emboli from the heart if they are for suspect found. As I cannot account for why his neuro symptoms are waxing and waning. CT head will be repeated to see if it has changed since yesterday. - Re-Assessments/Exams Free Text/Narrative Re-Assessment/Exam: 10/17/19 12:36 atrial fibrillation is down to 112/min. He is 130/83. O2 sats 95% on room air. 10/17/19 12:41 chest x-ray reveals mildly hyperinflated lung brown. Mild cardiomegaly. Left hemidiaphragm is elevated but is elevated chronically. Diffuse mild vascular congestion pattern. No pneumothorax or definitive pulmonary infiltrate.Hemoglobin is 8.56 with 74% neutrophils on the auto differential. Hemoglobin is 16.0 with hematocrit of 47.4 suggesting mild hemoconcentration. Platelet count 320,000. 10/17/19 13:22 his diltiazem drip has been titrated up to 15 mg/h. Rate remains poorly controlled still in the 1 teens to 125. We will give diltiazem 10 mg IV bolus. Pressure is 141/77. T head has been completed. Previous surgery in the left frontal frontal parietal region appreciated. There is an area of encephalomalacia in this area. There is diffuse age-related atrophy and chronic small vessel deep white matter ischemia. There are old lacunar infarcts in the region of the left basal ganglia. No hemorrhagic changes no large tertiary acute CVA evident. 10/17/19 13:24 Labs show a PT of 11.1. INR was 1.02. PTT is 30. D-dimer is elevated at 0.66 which is probably normal for age. Sodium is 143 with a potassium of 3.8. Chloride 106 with a bicarb of 25. Anion gap is 15.8. BUN is 15 with a creatinine of 1.1. GFR is greater than 60. Glucose is 113 with a calcium of 9.4. Magnesium 1.9. Liver function normal. This includes a GGT of 59. Component is less than 0.017. C-reactive protein is 2.2. BNP is 954. Total protein 7.8 with an albumin fraction of 3.5. Lipase is 157 10/17/19 13:40: I did discuss the findings with the daughter and the patient. He is not real happy to go to [place] but there is not much twice at this point time. He needs an echocardiogram to see if there is intramural thrombi that are causing recurrent stroke symptoms since he is off his Eliquis. His rapid atrial fibrillation has been difficult to control. Current heart rate was 125 and I had reordered the third dose of Cardizem 15 mg IV bolus. He has had 2 previous 10 mg IV boluses. He is currently on 15 mg/h drip. Pressures controlled 155/90. I was then able to speak through the 1 call system at [facility] and spoke with on-call hospitalist Dr Mustafa and he is excepted care of this patient. The plan will be to send him to [facility] in [place] per ground ambulance. He will require neurology consult and cardiology consultation with a view to whether or not emergent anticoagulation is required to prevent further waxing and waning of stroke symptoms. He primarily has a an expressive aphasia which improves at times and then manges to a a aphasia that is difficult to understand at all. 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 CVA (cerebral vascular accident) Qualifiers: CVA mechanism: unspecified Qualified Code(s): I63.9 - Cerebral infarction, unspecified Congestive heart failure Qualifiers: Heart failure type: unspecified Heart failure chronicity: acute Qualified Code( s): I50.9 - Heart failure, unspecified - Discharge Information *PRESCRIPTION DRUG MONITORING PROGRAM REVIEWED*: Not Applicable *COPY OF PRESCRIPTION DRUG MONITORING REPORT IN PATIENT INGRID: Not Applicable Referrals: Fedeirco Cavanaugh MD [Primary Care Provider] - Forms: ED Department Discharge Additional Instructions: Patient transferred to [facility] due to waxing and waning of neurological symptoms since onset of neurological deficit yesterday morning at 1030 hrs. He has changes in speech primarily that of expressive a aphasia to the point that sometimes he is not discernible at other times is understandable. He also experiences intermittent right arm weakness. Dropped a cup of coffee as he could not hang onto it this morning. On my examination his symptoms apparently had improved dramatically and I could find very little neurological deficit other than obvious expressive aphasia. Particularly there is no abnormalities of weakness in the lower extremities or with his gait. There was no ataxia . No problems with his gait. Rapid alternating movements and [id number] and [id number] testing was normal. Negative Romberg sign. Pronator drift. Patient is in chronic atrial fibrillation and recently had Eliquis discontinued for placement of a common bile duct stent last week Saturday in [place]. He has been off the Eliquis since last Saturday or 1 week ago. I suspect his neuro symptoms a waxing and waning of symptoms may be secondary to cardiac emboli due to rapid atrial fibrillation. He was not on any medication for rate control when he came into our ED. He is required recurrent doses of Cardizem to keep his heart rate about 100. He requires a echocardiogram to ascertain if there is mural thrombus. Decision will have to be made at that time as to whether to re-anticoagulated with Eliquis etc. He therefore requires cardiology consultation and neurology consultation. Through to their facility by ground ambulance. Sepsis Event Note - Evaluation Sepsis Screening Result: No Definite Risk - Focused Exam Vital Signs: Vital Signs Temp Pulse Resp BP Pulse Ox 10/17/19 11:29 36.2 C 107 H 17 156/88 H 100 Date Exam was Performed: 10/17/19 Time Exam was Performed: 14:04 - My Orders Last 24 Hours: My Active Orders 10/17/19 12:01 Chest 1V Frontal [CR] Stat 10/17/19 12:02 EKG Documentation Completion [RC] STAT 10/17/19 12:03 Head wo Cont [CT] Stat 10/17/19 12:15 Diltiazem [Cardizem] 100 mg Sodium Chloride 0.9% [Normal Saline] 100 ml IV TITRATE Sodium Chloride 0.9% [Normal Saline] 1,000 ml IV ASDIRECTED - Assessment/Plan Last 24 Hours: My Active Orders 10/17/19 12:01 Chest 1V Frontal [CR] Stat 10/17/19 12:02 EKG Documentation Completion [RC] STAT 10/17/19 12:03 Head wo Cont [CT] Stat 10/17/19 12:15 Diltiazem [Cardizem] 100 mg Sodium Chloride 0.9% [Normal Saline] 100 ml IV TITRATE Sodium Chloride 0.9% [Normal Saline] 1,000 ml IV ASDIRECTED
[2019-10-17] MEDS ORDERED: Diltiazem 100 MG in Sodium Chloride 0.9% 100 ML IV SCH (12:15)
[2019-10-17] MEDS ORDERED: Sodium Chloride 0.9% 1,000 ML IV SCH (12:15)
[2019-10-17 14:33] VITALS: BP 160/95; PULSE 105
--- NOTE | 2019-10-19 06:27 | CR ---
Chest: Portable view of the chest was obtained. Comparison: Prior chest x-ray of 04/01/16. Blunting of the lateral left costophrenic angle is seen which is believed to be chronic. Slight areas of atelectasis or scarring within the left base is noted. Lungs otherwise are clear. Heart size at the upper limits of normal. Bony structures are grossly intact. Impression: 1. 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 2. Mild areas of atelectasis or scarring within the left base. 3. Nothing acute is otherwise appreciated. Diagnostic code #2 This report was dictated in MDT
--- NOTE | 2019-10-19 06:38 | CT ---
Head CT Technique: Multiple axial sections through the brain were obtained. Intravenous contrast was not utilized. Comparison: Prior MRI brain of 10/16/[address] exam also performed on 10/16/19. 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 Diminished density scattered within the periventricular and subcortical white matter compatible with small vessel ischemic demyelination change. No other abnormal parenchymal densities are seen. No evidence of intracranial hemorrhage. No midline shift or mass-effect is seen. Bone window settings were reviewed which show previous left-sided craniotomy. No acute calvarial finding is seen. Visualized paranasal sinuses and mastoid sinuses are clear. Impression: 1. Findings as noted above. 2. Nothing acute is definitely appreciated on noncontrast head CT study. Diagnostic code #3 This report was dictated in MDT I agree with preliminary report from [place], finalized on 10/17/19, 1:58 PM Central Daylight Time
== END 2019-10-17 14:16 ==
LOC: JD.ED 11:13
DX: I63.9 Cerebral infarction, unspecified (principal); I11.0 Hypertensive heart disease with heart failure; I50.9 Heart failure, unspecified; I48.20 Chronic atrial fibrillation, unspecified; K83.1 Obstruction of bile duct; K21.9 Gastro-esophageal reflux disease without esophagitis; Z87.891 Personal history of nicotine dependence; Z88.0 Allergy status to penicillin; Z79.82 Long term (current) use of aspirin; Z79.899 Other long term (current) drug therapy
CPT/HCPCS: 36415; 70450; 71045; 80053; 82977; 83690; 83735; 83880; 84484; 85025; 85379; 85610; 85652; 85730; 86140; 93005; 96365; 96366; 99285; J3490; J7030; J7050

== ENCOUNTER 2021-08-28 15:58 | Emergency (ER) | payer MEDICARE, BC ==
[2021-08-28 16:09] VITALS: BP 158/90; PULSE 100
== END 2021-08-28 17:02 | disposition home or self-care (01) ==
LOC: JD.ED 15:58
DX: S51.811A Laceration without foreign body of right forearm, initial encounter (principal); I48.91 Unspecified atrial fibrillation; I10 Essential (primary) hypertension; K21.9 Gastro-esophageal reflux disease without esophagitis; Z88.0 Allergy status to penicillin; Z79.899 Other long term (current) drug therapy; Z86.73 Personal history of transient ischemic attack (TIA), and cerebral infarction without residual deficits; Z79.01 Long term (current) use of anticoagulants; Z79.82 Long term (current) use of aspirin; W18.09XA Striking against other object with subsequent fall, initial encounter
CPT/HCPCS: 99283

== ENCOUNTER 2022-01-24 08:06 | Day surgery (SDC) | payer MEDICARE, BC ==
[~2022-01-24 08:06] MED LIST: Lactated Ringers 1,000 ML IV SCH; Lidocaine 1%/Sod Bicarbonate in NS 8.4% 1 ML Syringe IDERM PRN; Sodium Chloride 0.9% 10 ML Syringe FLUSH PRN; Sodium Chloride 0.9% 10 ML Syringe FLUSH SCH
[2022-01-24] MEDS ORDERED: Propofol 200 MG/20 ML SDV ONE ×3 (08:12→12:15)
[2022-01-24] MEDS ORDERED: fentaNYL 100 MCG/2 ML SDV ONE (08:12)
[2022-01-24] MEDS ORDERED: Lidocaine 1% 4 ML ONE (08:13)
[2022-01-24] MEDS ORDERED: Lidocaine 1% with EPINEPHrine 1:100,000 20 ML MDV ONE (08:44)
[2022-01-24] MEDS ORDERED: fentaNYL 100 MCG/2 ML SDV IVPUSH PRN (08:49)
[2022-01-24] MEDS ORDERED: Ondansetron 4 MG/2 ML SDV IVPUSH PRN (08:49)
[2022-01-24] MEDS ORDERED: Midazolam 1 MG/ML 2 ML SDV ONE (11:02)
[2022-01-24 15:25] VITALS: BP 130/80; PULSE 85
== END 2022-01-24 13:52 | disposition home or self-care (01) ==
LOC: JD.SDS 08:06
PROVIDERS: ATTEND Surgery
DX: D12.4 Benign neoplasm of descending colon (principal); D12.3 Benign neoplasm of transverse colon; K57.30 Diverticulosis of large intestine without perforation or abscess without bleeding; K22.70 Barrett's esophagus without dysplasia; K44.9 Diaphragmatic hernia without obstruction or gangrene; K29.90 Gastroduodenitis, unspecified, without bleeding; L82.0 Inflamed seborrheic keratosis; L73.8 Other specified follicular disorders; I10 Essential (primary) hypertension; Z86.73 Personal history of transient ischemic attack (TIA), and cerebral infarction without residual deficits; Z98.890 Other specified postprocedural states; Z79.899 Other long term (current) drug therapy; Z88.0 Allergy status to penicillin; Z87.891 Personal history of nicotine dependence
CPT/HCPCS: 00813; J2250; J2704; J3010; J7120

== ENCOUNTER 2022-04-18 07:27 | Day surgery (SDC) | payer MEDICARE, BC ==
[~2022-04-18 07:27] MED LIST changes: -Sodium Chloride 0.9% 10 ML Syringe FLUSH SCH
[2022-04-18] MEDS ORDERED: fentaNYL 100 MCG/2 ML SDV ONE (08:32)
[2022-04-18] MEDS ORDERED: Lidocaine 1% 6 ML ONE (08:32)
[2022-04-18] MEDS ORDERED: Propofol 200 MG/20 ML SDV ONE (08:32)
[2022-04-18] MEDS ORDERED: Sodium Chloride 0.9% 10 ML Syringe FLUSH SCH (09:00)
[2022-04-18 11:51] VITALS: BP 140/76; PULSE 74
== END 2022-04-18 10:30 | disposition home or self-care (01) ==
LOC: JD.SDS 07:27
PROVIDERS: ATTEND Surgery
DX: K57.30 Diverticulosis of large intestine without perforation or abscess without bleeding (principal); K64.4 Residual hemorrhoidal skin tags; I10 Essential (primary) hypertension; I48.91 Unspecified atrial fibrillation; Z98.890 Other specified postprocedural states; Z79.899 Other long term (current) drug therapy; Z87.891 Personal history of nicotine dependence
CPT/HCPCS: 45378; J2704; J3010; J7120; 00731; 99100

== ENCOUNTER 2022-10-17 10:21 | Day surgery (SDC) | payer MEDICARE, BC ==
[~2022-10-17 10:21] MED LIST changes: +Clindamycin Phosphate in D5W 900 MG in Premix Bag 1 BAG IV SCH; -Lactated Ringers 1,000 ML IV SCH; -Lidocaine 1%/Sod Bicarbonate in NS 8.4% 1 ML Syringe IDERM PRN; -Sodium Chloride 0.9% 10 ML Syringe FLUSH PRN
[2022-10-17] MEDS ORDERED: Acetaminophen 325 MG Tab PO SCH (10:30)
[2022-10-17] MEDS ORDERED: Lactated Ringers 1,000 ML IV SCH (10:30)
[2022-10-17] MEDS ORDERED: Gabapentin 300 MG Cap PO SCH (10:30)
[2022-10-17] MEDS ORDERED: Lidocaine 1% 30 ML SDV ONE (11:17)
[2022-10-17] MEDS ORDERED: Bupivacaine 0.5%/EPINEPHrine 1:200,000 50 ML MDV ONE (11:18)
[2022-10-17] MEDS ORDERED: Propofol 200 MG/20 ML SDV ONE (11:41)
[2022-10-17] MEDS ORDERED: Lidocaine 1% 4 ML ONE (11:41)
[2022-10-17] MEDS ORDERED: Rocuronium 50 MG/5 ML Vial ONE (11:41)
[2022-10-17] MEDS ORDERED: fentaNYL 100 MCG/2 ML SDV ONE ×3 (11:41→12:55)
[2022-10-17] MEDS ORDERED: Ondansetron 4 MG/2 ML SDV ONE (12:05)
[2022-10-17] MEDS ORDERED: Dexamethasone 4 MG/ML 5 ML MDV ONE (12:05)
[2022-10-17] MEDS ORDERED: EPINEPHrine 1 MG/ML SDV ONE (12:08)
[2022-10-17] MEDS ORDERED: ePHEDrine 50 MG/ML SDV ONE (12:16)
[2022-10-17] MEDS ORDERED: Sugammadex Sodium 200 MG/2 ML VIAL ONE (12:34)
[2022-10-17] MEDS ORDERED: Ondansetron 4 MG/2 ML SDV IVPUSH PRN (13:30)
[2022-10-17] MEDS ORDERED: fentaNYL 100 MCG/2 ML SDV IVPUSH PRN (13:30)
[2022-10-17] MEDS ORDERED: HYDROmorphone 0.5 MG/0.5 ML Syringe IVPUSH PRN (13:30)
[2022-10-17] MEDS ORDERED: Acetaminophen/oxyCODONE 325-5 MG Tab PO PRN (13:42)
[2022-10-17 15:03] VITALS: PULSE 98
[2022-10-17 15:42] VITALS: BP 133/77
== END 2022-10-17 15:47 | disposition home or self-care (01) ==
LOC: JD.SDS 10:21
PROVIDERS: ATTEND Surgery
DX: K81.1 Chronic cholecystitis (principal); K82.8 Other specified diseases of gallbladder; I10 Essential (primary) hypertension; I48.20 Chronic atrial fibrillation, unspecified; L76.32 Postprocedural hematoma of skin and subcutaneous tissue following other procedure; K21.9 Gastro-esophageal reflux disease without esophagitis; Z79.01 Long term (current) use of anticoagulants; Z86.73 Personal history of transient ischemic attack (TIA), and cerebral infarction without residual deficits; Z98.890 Other specified postprocedural states; Z79.899 Other long term (current) drug therapy; Z87.891 Personal history of nicotine dependence; Z88.0 Allergy status to penicillin
CPT/HCPCS: 47562; 99283; A9270; J0171; J1100; J2405; J2704; J3010; J3490; J7120

== ENCOUNTER 2022-10-17 16:44 | Emergency (ER) | payer MEDICARE, BC ==
[2022-10-17 17:58] VITALS: BP 127/80; PULSE 71
== END 2022-10-17 18:05 | disposition home or self-care (01) ==
LOC: JD.ED 16:44
DX: L76.32 Postprocedural hematoma of skin and subcutaneous tissue following other procedure (principal); K21.9 Gastro-esophageal reflux disease without esophagitis; Z86.73 Personal history of transient ischemic attack (TIA), and cerebral infarction without residual deficits; Z88.0 Allergy status to penicillin; Z79.01 Long term (current) use of anticoagulants; Z79.899 Other long term (current) drug therapy
CPT/HCPCS: 99283

== ENCOUNTER 2025-04-26 15:31 | Inpatient (IN) | payer MEDICARE, BC ==
[2025-04-26 17:22] LABS: BASOPHILS ABSOLUTE AUTO 0.1 K/mm3 (0.0-0.2); BASOPHILS PERCENT AUTO 0.5 % (0.0-1.0); EOSINOPHILS ABSOLUTE AUTO 0.1 K/mm3 (0.0-0.4); EOSINOPHILS PERCENT AUTO 1.1 % (0.0-6.0); IMMATURE GRAN ABSOLUTE AUTO 0.03 K/mm3 (0.00-0.05); IMMATURE GRAN PERCENT AUTO 0.3 % (0.0-0.4); LYMPHOCYTES ABSOLUTE AUTO 1.4 K/mm3 (1.0-4.8); LYMPHOCYTES PERCENT AUTO 14.4 % (24.0-44.0); MEAN PLATELET VOLUME 10.5 fl (9.4-12.4); MONOCYTES ABSOLUTE AUTO 1.1 K/mm3 (0.0-0.8); MONOCYTES PERCENT AUTO 11.5 % (0.0-8.0); NEUTROPHILS ABSOLUTE AUTO 6.8 K/mm3 (1.8-7.7); NEUTROPHILS PERCENT AUTO 72.2 % (41.0-71.0); NRBC ABSOLUTE 0.00 (0.00-0.02); NRBC PERCENT 0.0 % (0.0-0.2); PLATELET COUNT,PLT 236 K/mm3 (150-400); RED BLOOD CELL COUNT 4.67 M/mm3 (4.52-5.90); WHITE BLOOD CELL COUNT,WBC 9.46 K/mm3 (3.9-11.3)
[2025-04-26 17:44] LABS: A/G RATIO 0.7 (1-2); ALANINE AMINOTRANSFERASE,ALT 21.0 U/L (16-63); ASPARTATE AMNIOTRANSFERASE,AST 13.0 U/L (15-37); BILIRUBIN TOTAL 1.0 mg/dL (0.2-1.0); BLOOD UREA NITROGEN,BUN 30.0 mg/dL (7-18); CARBON DIOXIDE,CO2 23.0 mEq/L (21-32); CHLORIDE,CL 102.0 mEq/L (98-107); CREATININE 1.4 mg/dL (0.7-1.3); EST CRCL DRUG DOSING (CG) 51.89 mL/min; ESTIMATED GFR 51.0 mL/min (>60); GLUCOSE RANDOM 102.0 mg/dL (70-99); POTASSIUM,K 3.4 mEq/L (3.5-5.1); PROTEIN TOTAL,TP 7.5 g/dl (6.4-8.2); SODIUM,NA 137.0 mEq/L (136-145)
[2025-04-26] MEDS: Ondansetron 4 MG/2 ML SDV IVPUSH ONE (18:08)
[2025-04-26] MEDS: Iopamidol 612 MG/ML 100 ML Bottle IVPUSH ONE (18:08)
[2025-04-26] MEDS: metroNIDAZOLE/Normal Saline 500 MG in Premix Bag 1 BAG IV ONE (19:18)
[2025-04-26] MEDS: cefTRIAXone 1 GM in Water For Injection, Sterile 10 ML IVPUSH ONE (19:18)
[2025-04-26] MEDS: cefTRIAXone 1 GM in Water For Injection, Sterile 10 ML IVPUSH SCH (20:56)
[2025-04-26] MEDS: metroNIDAZOLE/Normal Saline 500 MG in Premix Bag 1 BAG IV SCH (20:56)
[2025-04-26 21:42] LABS: APPEARANCE,URINE CLEAR (Clear); GLUCOSE,URINE NEGATIVE (Negative); OCCULT BLOOD,URINE NEGATIVE (Negative)
[2025-04-27 06:14] LABS: A/G RATIO 0.7 (1-2); ALANINE AMINOTRANSFERASE,ALT 18.0 U/L (16-63); ASPARTATE AMNIOTRANSFERASE,AST 11.0 U/L (15-37); BILIRUBIN TOTAL 0.8 mg/dL (0.2-1.0); BLOOD UREA NITROGEN,BUN 20.0 mg/dL (7-18); CARBON DIOXIDE,CO2 24.0 mEq/L (21-32); CHLORIDE,CL 104.0 mEq/L (98-107); CREATININE 1.1 mg/dL (0.7-1.3); EST CRCL DRUG DOSING (CG) 58.95 mL/min; ESTIMATED GFR 69.0 mL/min (>60); GLUCOSE RANDOM 102.0 mg/dL (70-99); POTASSIUM,K 3.3 mEq/L (3.5-5.1); PROTEIN TOTAL,TP 6.6 g/dl (6.4-8.2); SODIUM,NA 139.0 mEq/L (136-145)
[2025-04-27] MEDS: Potassium Chloride 20 MEQ Tab.ER PO SCH (09:10)
[2025-04-27] MEDS: cefTRIAXone 2 GM in Water For Injection, Sterile 20 ML IVPUSH SCH (15:12)
[2025-04-28 05:53] LABS: MEAN PLATELET VOLUME 11.1 fl (9.4-12.4); NRBC ABSOLUTE 0.00 (0.00-0.02); NRBC PERCENT 0.0 % (0.0-0.2); PLATELET COUNT,PLT 219 K/mm3 (150-400); RED BLOOD CELL COUNT 4.07 M/mm3 (4.52-5.90); WHITE BLOOD CELL COUNT,WBC 8.62 K/mm3 (3.9-11.3)
[2025-04-28 06:05] LABS: A/G RATIO 0.7 (1-2); ALANINE AMINOTRANSFERASE,ALT 17.0 U/L (16-63); ASPARTATE AMNIOTRANSFERASE,AST 9.0 U/L (15-37); BILIRUBIN TOTAL 0.7 mg/dL (0.2-1.0); BLOOD UREA NITROGEN,BUN 13.0 mg/dL (7-18); CARBON DIOXIDE,CO2 24.0 mEq/L (21-32); CHLORIDE,CL 106.0 mEq/L (98-107); CREATININE 1.0 mg/dL (0.7-1.3); EST CRCL DRUG DOSING (CG) 64.84 mL/min; ESTIMATED GFR 77.0 mL/min (>60); GLUCOSE RANDOM 104.0 mg/dL (70-99); POTASSIUM,K 3.7 mEq/L (3.5-5.1); PROTEIN TOTAL,TP 6.2 g/dl (6.4-8.2); SODIUM,NA 139.0 mEq/L (136-145)
[2025-04-28] MEDS: cefTRIAXone 2 GM in Water For Injection, Sterile 20 ML IVPUSH SCH (12:52)
[2025-04-28 13:29] VITALS: BP 127/72; PULSE 86
== END 2025-04-28 13:15 | disposition home or self-care (01) | DRG 392 ==
LOC: JD.ED 15:31 → JD.MS 20:19
PROVIDERS: ADMIT Internal Medicine; ATTEND Internal Medicine
DX: K57.20 Diverticulitis of large intestine with perforation and abscess without bleeding (principal); N17.9 Acute kidney failure, unspecified; I48.0 Paroxysmal atrial fibrillation; I10 Essential (primary) hypertension; E78.5 Hyperlipidemia, unspecified; E86.0 Dehydration; I48.91 Unspecified atrial fibrillation; H54.7 Unspecified visual loss; K21.9 Gastro-esophageal reflux disease without esophagitis; Z86.73 Personal history of transient ischemic attack (TIA), and cerebral infarction without residual deficits; Z90.49 Acquired absence of other specified parts of digestive tract; Z98.890 Other specified postprocedural states; Z79.01 Long term (current) use of anticoagulants; Z88.0 Allergy status to penicillin; Z79.899 Other long term (current) drug therapy
CPT/HCPCS: 36415; 74177; 80053; 83690; 85025; 96361; 96365; 96375; 99285; J0696; J2405; J7030; Q9967; 81003; 85027; 86140; 99239; A4216; A9270-GY; J1836